=== PATIENT | female | born 1975 | race African-American/Black ===

== ENCOUNTER 2021-07-03 12:05 | Emergency (ER) | payer MEDICARE, MEDICAID, SELFPAY ==
--- NOTE | ~2021-07-03 | XR_ITS ---
EXAMINATION: XR knee LT 3V DATE: 07/03/2021 12:18 INDICATION: Left knee pain TECHNIQUE: Three views of the left knee were obtained. COMPARISON: None. FINDINGS: Alignment is normal. No fracture or osteochondral lesion. There is mild tricompartmental os teoarthritis characterized by tiny marginal osteophytes. No joint effusion/synovitis. Soft tissues a re unremarkable. IMPRESSION: 1. No acute osseous abnormality. Reviewed, dictated and finalized at location A.
[2021-07-03 12:18] VITALS: BP 152/89; PULSE 92; RESP 18; TEMP 36.4; O2SAT 97
[2021-07-03 12:46] VITALS: BP 105/72; PULSE 98; RESP 20; O2SAT 99
--- NOTE | 2021-07-03 14:36 | ED.GENADULT ---
HPI - General Adult General Chief complaint: Extremity Injury, Lower Stated complaint: left knee injury Time Seen by Provider: 07/03/21 12:45 Source: patient Mode of arrival: ambulatory Limitations: no limitations History of Present Illness HPI narrative: Patient presents for evaluation of left knee pain. She indicates 2 months ago she injured her knee when she attempted to get up off a step and her leg got caught beneath her. She states she was seen by her primary care provider who ordered an x-ray. She then saw a [facility] and had what sounds to be aspiration of an effusion with steroid injection. She states that her pain improved thereafter. She has no new injury. She has been taking ibuprofen for pain. She is wondering if any other therapies are available. She has taken tramadol in the past for pain, which seems to help. No underlying hx of gout. No loss of ROM. No paresthesias. At rest her pain is minimal however with weight bearing and movement her pain increases to moderate severity, without numerical rating and without descriptive quality. Related Data Allergies Allergy/AdvReac Type Severity Reaction Status Date / Time No Known Allergies Allergy Verified 07/03/21 12:21 Review of Systems Review of Systems: CONSTITUTIONAL: Denies fever, chills, or sweats. EYES: Denies visual changes, redness, or discharge. ENT: Denies rhinorrhea, congestion, sore throat, or otalgia. CARDIOVASCULAR: Denies chest pain, palpitations, or edema. RESPIRATORY: Denies cough or dyspnea. GASTROINTESTINAL: Denies abdominal pain, nausea, vomiting, or diarrhea. GENITOURINARY: Denies dysuria or hematuria. SKIN: Denies rash or itching. MUSCULOSKELETAL:Reports left knee pain. Denies back pain and myalgia NEUROLOGIC: Denies headache, numbness, dizziness, or weakness. PSYCHIATRIC: Denies anxiety or depression. [facility] Past Medical History Medical History No pertinent past medical history Surgical History Surgical History No pertinent past surgical history Family History Family History (Updated 07/03/21 @ 14:42 by ANN Melissa, JACOBO) Father No pertinent past medical history Social History Social History (Updated 07/03/21 @ 14:43 by Savage Harp, [facility], ) Alcohol intake: never Substance use: never Living arrangements: with family Gender identity (if verbalized by the patient): Female Sexual Orientation (if Verbalized by the Patient): Straight or Heterosexual Spiritual care concerns: No Exam Narrative: GENERAL: Well-appearing, well-nourished, and in no acute distress. HEAD: Normocephalic, atraumatic. EYES: PERRLA and EOMI. ENT: Nares clear, no rhinorrhea or epistaxis. Mucous membranes moist. Oropharynx without tonsillar hypertrophy exudate or other lesions. Bilateral TMs pearly maddox nonbulging NECK: Supple. No adenopathy or masses. No carotid bruits or JVD CHEST: Clear to auscultation. No respiratory distress. No wheezes rales or rhonchi HEART: Regular rate and rhythm. No murmur heard. Normal peripheral pulses. ABDOMEN: Soft, nontender, nondistended, normal active bowel sounds. EXTREMITIES: No tenderness in the left knee. Full active range of motion. No crepitus or deformity. No swelling. SKIN: Warm, dry, no rash. NEURO: No focal deficits. Alert and oriented x3. PSYCH: Normal mood and affect. Course Course Emergency Course: This is a 45-year-old female who presents with complaints of left knee pain after an injury approximately 2 months ago. She has no subsequent injury. X-ray today was normal. She has ibuprofen available at home. She states tramadol has helped her in the past. Think would be reasonable to give her a small quantity have her follow-up with orthopedics. Vital Signs Vital signs: Vital Signs Temperature 36.4 C 07/03/21 12:18
== END 2021-07-03 14:57 | disposition home or self-care (01) ==
PROVIDERS: Emergency Provider Nurse Practitioner; PCP Internal Medicine Gastroenterology
DX: S86.912A Strain of unspecified muscle(s) and tendon(s) at lower leg level, left leg, initial encounter (principal); X58.XXXA Exposure to other specified factors, initial encounter
CPT/HCPCS: 73562; 99283

== ENCOUNTER 2024-10-09 08:52 | Outpatient (CLI) | payer MEDICARE, MEDICAID, SELFPAY ==
--- NOTE | ~2024-10-09 | XR_ITS ---
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 The procedure including the risks, benefits, and alternatives was discussed with the pat ient. Risks discussed included bleeding and infection. The patient understood the risks and agreed to proceed. The skin overlying the right hip joint was prepped and draped in usual sterile fashion. A nesthetic was administered with 1% lidocaine subcutaneously. A 22 G needle was advanced under fluoro scopic guidance into the joint. Injection of 1 mL of Omnipaque 240 confirmed intra-articular positio n of the needle. Subsequently, injectate consisting of 5 mL a 4:1 mixture of 0.5% Marcaine: 80 mg/mL Depo-Medrol for a total dosage of 80 mg Depo-Medrol was instilled. Washout of contrast was seen conf irming intra-articular administration. The needle was removed and the entry site was cleaned and dres sed. There were no immediate complications. Fluoroscopy exposure time was 0.1 minutes. The total num hayden of images was 2. FINDINGS: Real-time fluoroscopy demonstrates the needle in the right hip joint. Patient's pain prior to procedure:10/10. Patient's pain following the procedure: 0/10. IMPRESSION: 1. Successful right hip joint injection of local anesthetic and steroid with decrease in the patient' s presenting pain. Reviewed, dictated and finalized at location B. [employer] IMPRESSION: 1. Successful right hip joint injection of local anesthetic and steroid with de crease in the patient's presenting pain.
== END 2024-10-09 08:53 | disposition home or self-care (01) ==
PROVIDERS: PCP Internal Medicine Gastroenterology; Visit Provider Orthopaedic Surgery
DX: M16.11 Unilateral primary osteoarthritis, right hip (principal)
CPT/HCPCS: 20610; 77002; J1010; Q9966

== ENCOUNTER 2025-08-11 09:28 | Outpatient (CLI) | payer MEDICARE, MEDICAID, SELFPAY ==
--- NOTE | ~2025-08-11 | MR_ITS ---
EXAMINATION: MR MRCP wo/w con/w 3D wo ind DATE: 08/11/2025 10:41 INDICATION: Constipation. Right upper quadrant abdominal pain. TECHNIQUE: Magnetic resonance imaging (MRI) of the abdomen was performed without and with 19 mL MultiHance intravenous contrast. Thick-slab T2-weighted FSE images were obtained for magnetic resonance cholangiopancreatography (MRCP). Maximum intensity projection 3-D reconstructions of the volumetric data were created by the technologist. COMPARISON: CT abdomen and pelvis 06/10/2024 FINDINGS: ABDOMEN MRI: The liver is normal. There are changes of cholecystectomy. The spleen, pancreas, adrenal glands, and kidneys are normal. There are no dilated loops of bowel. There are no pathologically enlarged lymph nodes. There is no free intraperitoneal fluid. ABDOMEN MRCP: The common duct is normal and measures 5 mm. No choledocholithiasis. IMPRESSION: 1. Normal abdomen status post cholecystectomy. Reviewed, dictated and finalized at location E.
== END 2025-08-11 09:29 | disposition home or self-care (01) ==
LOC: MICIMG 09:29
PROVIDERS: PCP Internal Medicine Gastroenterology; Visit Provider Internal Medicine Gastroenterology
DX: K21.9 Gastro-esophageal reflux disease without esophagitis (principal); K59.00 Constipation, unspecified; R13.10 Dysphagia, unspecified; R10.11 Right upper quadrant pain
CPT/HCPCS: 74183; 76376; A9577